=== PATIENT | male | born 1995 | race Two or more races ===

== ENCOUNTER 2017-04-17 07:51 | Day surgery (SDC) | payer OTHER ==
[~2017-04-17] VITALS: Ht 185.4 cm; Wt 87.0 kg
[2017-04-17] MEDS ORDERED: LR 1,000 ML IV ONE (08:00)
[2017-04-17] MEDS ORDERED: LIDOCAINE 1% MDV 20ML VIAL As Ordered ONE (10:50)
[2017-04-17] MEDS ORDERED: BUPIVACAINE HCL 0.25% 10 ML VIAL As Ordered ONE (10:50)
[2017-04-17] MEDS ORDERED: fentaNYL 100 MCG/2 ML INJECTION (J3010) As Ordered ONE ×2 (10:53→11:30)
[2017-04-17] MEDS ORDERED: MIDAZOLAM INJ 2 MG/2 ML VIAL (J2250) As Ordered ONE ×2 (10:53→11:13)
[2017-04-17] MEDS ORDERED: PROPOFOL 200 MG/20 ML VIAL As Ordered ONE (10:53)
[2017-04-17] MEDS ORDERED: dexameTHASONE 4 MG/ML 1ML VIAL (J1100) As Ordered ONE (11:31)
[2017-04-17] MEDS ORDERED: ONDANSETRON 4MG/2ML VIAL (J2405) As Ordered ONE (11:31)
[2017-04-17] MEDS ORDERED: KETOROLAC 60 MG/2 ML VIAL (J1885) As Ordered ONE (11:38)
[2017-04-17] MEDS ORDERED: POLYSPORIN TOPICAL OINTMENT 15GM As Ordered ONE (12:06)
[2017-04-17] MEDS ORDERED: POLYSPORIN OPHTH OINT 3.5 GM As Ordered ONE (12:06)
[2017-04-17] MEDS ORDERED: BACT800T5 PO (12:39)
[2017-04-17] MEDS ORDERED: TYLE650T35 PO (12:39)
[2017-04-17] MEDS ORDERED: MIDAZOLAM INJ 2 MG/2 ML VIAL (J2250) IV ONE (12:42)
[2017-04-17] MEDS ORDERED: fentaNYL 100 MCG/2 ML INJECTION (J3010) IV PRN (14:00)
[2017-04-17] MEDS ORDERED: PERCOCET 5MG/325MG TAB PO PRN (14:00)
[2017-04-17] MEDS ORDERED: LR 1,000 ML IV SCH (14:00)
[2017-04-17] MEDS ORDERED: ONDANSETRON 4MG/2ML VIAL (J2405) IV PRN (14:00)
[2017-04-17] MEDS ORDERED: ACETAMINOPHEN 650MG ER TAB (TYLENOL ARTHRITIS) PO PRN (14:15)
[2017-04-17 14:20] VITALS: BP 120/78
[2017-04-17] MEDS ORDERED: BACTRIM 160MG/800MG DS TAB PO SCH (21:00)
--- NOTE | 2017-04-21 15:31 | RO ---
DATE OF PROCEDURE: 04/17/2017 PREPROCEDURE DIAGNOSIS: Phimosis. POSTPROCEDURE DIAGNOSIS: Phimosis. SURGERY PERFORMED: Circumcision. SURGEON: Marlon Peck MD OUTPATIENT SERVICES DIRECTOR: None. ANESTHESIA: LMA. ESTIMATED BLOOD LOSS: Minimal. HISTORY OF PRESENT ILLNESS: 21-year-old male patient with recurrent balanitis and also phimosis. For this reason, we have consented him for a circumcision. DESCRIPTION OF PROCEDURE: The patient is in supine position under LMA anesthesia, after prepping and dressing the area of concern, which included the entire genitalia, we started by doing a penile block in the base of the penis with 5 mL of Marcaine and 5 mL of lidocaine, Marcaine 0.25% and Lidocaine 2%, total mixture of 10 mL. We then proceeded to actually cut the frenulum and retract the foreskin. We then did a circumferential incision 1 cm below the sulcus of the glans and then another circumferential incision with a cold knife, #15 blade in a circumferential fashion 4 cm more proximal toward the base of the penis. We then, with Metzenbaum scissors, split and resected tissue of foreskin between both incisions, and then fulgurated the bleeding vessels with electro Bovie cautery. We approximated each border of the skin with chromic #3-0 in separate stitches. We then applied Bacitracin cream, Kerlix roll and a Coban. PLAN: The patient will go home today with antibiotic and pain medication. Followup in 3 to 5 days at [facility] for removal of the Coban and dressing. He cannot have sexual intercourse for 1 month. He is going home with antibiotics and pain medication.
== END 2017-04-17 14:28 | disposition home or self-care (01) ==
LOC: M SDC 07:51
PROVIDERS: ATTEND Urology
DX: N47.1 Phimosis (principal)
CPT/HCPCS: 54161; 88304; J0690; J1100; J1885; J2250; J2405; J3010

== ENCOUNTER 2018-11-20 15:07 | Emergency (ER) | payer OTHER ==
[~2018-11-20] VITALS: Ht 185.4 cm; Wt 84.1 kg
[~2018-11-20 15:07] MED LIST: BACT800T5 PO; TYLE650T35 PO
[2018-11-20 19:17] VITALS: BP 130/75
== END 2018-11-20 19:18 | disposition home or self-care (01) ==
LOC: M ED 15:07
DX: S61.452A Open bite of left hand, initial encounter (principal); W54.0XXA Bitten by dog, initial encounter; Y92.008 Other place in unspecified non-institutional (private) residence as the place of occurrence of the external cause